=== PATIENT | female | born 1975 | race African-American/Black ===

== ENCOUNTER 2020-10-13 08:08 | Emergency (ER) | payer SELFPAY ==
[~2020-10-13] VITALS: Ht 160 cm; Wt 82.4 kg
[2020-10-13 08:21] VITALS: BP 141/86
[2020-10-13] MEDS ORDERED: CLIN150C15 PO (08:33)
--- NOTE | 2020-10-13 08:33 | PHYS DOC ---
Past History Past Medical History: Other Past Surgical History: Appendectomy Smoking: Cigarettes Alcohol Use: Occasionally Drug Use: None General Adult EDM: Chief Complaint: HEADACHE HPI: HPI: Patient is a 45-year-old female coming in for left-sided facial pain. Patient states that she thinks she has the pain when her blood pressure is high and took an extra dose of her hydrochlorothiazidelisinopril. Is been taking ibuprofen for pain. No vomiting, vision changes, throat pain, fevers. Review of Systems: Review of Systems: All other systems within normal limits except for as noted in the HPI Allergies: Allergies: Allergies Coded Allergies Type Severity Reaction Last Updated Verified No Known Drug Allergies 05/14/13 No Physical Exam: PE: Constitutional: Well developed, well nourished, no acute distress, non-toxic appearance. [] HENT: Normocephalic, atraumatic, bilateral external ears normal, nose normal. Left TM normal, tenderness over left lower jaw, multiple dental caries [] Eyes: PERRLA, conjunctiva normal, no discharge. [] Neck: No rigidity, supple, no stridor. [] Cardiovascular: Regular rate and rhythm, brisk cap refill [] Lungs & Thorax: Non labored symmetric respirations, no tachypnea or respiratory distress [] Abdomen: Soft, nondistended. Skin: Warm, dry, no erythema, no rash. [] Back: Unremarkable Extremities: No deformities, range of motion grossly intact, no lower extremity edema [] Neurologic: Alert and oriented X 3, no focal deficits noted. [] Psychologic: Affect normal, judgement normal, mood normal. [] EKG: EKG: [] Radiology/Procedures: Radiology/Procedures: [] Heart Score: C/O Chest Pain: No Risk Factors: Risk Factors: DM, Current or recent (<one month) smoker, HTN, HLP, family history of CAD, obesity. Risk Scores: Score 0 - 3: 2.5% MACE over next 6 weeks - Discharge Home Score 4 - 6: 20.3% MACE over next 6 weeks - Admit for Clinical Observation Score 7 - 10: 72.7% MACE over next 6 weeks - Early Invasive Strategies Course & Med Decision Making: Course & Med Decision Making Pertinent Labs and Imaging studies reviewed. (See chart for details) [] Teresa Disclaimer: Teresa Disclaimer: This electronic medical record was generated, in whole or in part, using a voice recognition dictation system. Departure Departure: Impression: Primary Impression: Infected dental caries Disposition: HOME / SELF CARE / HOMELESS Condition: STABLE Referrals: PCP,NO (PCP) Patient Instructions: Dental Abscess Scripts Clindamycin Hcl (CLINDAMYCIN HCL) 150 Mg Capsule 3 CAP PO TID for antibiotic for 7 Days, #63 CAP Prov: KIRSTEN PANIAGUA MD 10/13/20 KIRSTEN PANIAGUA MD October 13, 2020 08:33
[2020-10-13] MEDS ORDERED: CLINDAMYCIN HCL 150 MG CAPSULE ONE (08:34)
[2020-10-13] MEDS: CLINDAMYCIN HCL 150 MG CAPSULE PO ONE (08:36)
== END 2020-10-13 08:43 | disposition home or self-care (01) ==
LOC: ER 08:08
DX: K02.9 Dental caries, unspecified (principal); R51.9 Headache, unspecified; F17.210 Nicotine dependence, cigarettes, uncomplicated
CPT/HCPCS: 99283